=== PATIENT | female | born 1985 | race Caucasian/White ===

== ENCOUNTER 2023-02-09 13:47 | Observation (INO) | payer OTHER ==
--- NOTE | 2023-02-09 14:18 | ED Physician Documentation ---
PD HPI ABD PAIN - Stated complaint Stated Complaint: ABD PX/BLOAT - Chief complaint Chief Complaint: Abd Pain - History obtained from History obtained from: Patient - Additional information Additional information: She has developed progressive epigastric and right upper quadrant pain for the last 36 hours associated with a sensation of bloating and mild nausea. No history of abdominal surgeries. Pain is a stabbing pain. PD PAST MEDICAL HISTORY - Present Medications Home Medications: Ambulatory Orders Medication Instructions Recorded Confirmed No Known Home Medications 02/09/23 02/09/23 - Allergies Allergies/Adverse Reactions: Allergies Allergy/AdvReac Type Severity Reaction Status Date / Time oxymetazoline Allergy Hives Verified 02/09/23 14:08 PD ED PE NORMAL - Vitals Vital signs reviewed: Yes - General General: Alert and oriented X 3, No acute distress - Respiratory Respiratory: No respiratory distress, Clear bilaterally - Abdomen Abdomen: Normal bowel sounds, Other (Exquisitely tender in the right upper quadrant with positive Dumont sign) - Neuro Neuro: Alert and oriented X 3, Normal speech Results - Vitals Vitals: Vital Signs - 24 hr 02/09/23 02/09/23 14:07 15:37 Temperature 36.6 C Heart Rate 91 64 Respiratory 16 20 Rate Blood Pressure 197/94 H 181/56 H O2 Saturation 97 97 Oxygen O2 Source Room air - Labs Labs: Laboratory Tests 02/09/23 02/09/23 14:30 14:30 WBC 15.8 H RBC 5.02 Hgb 15.2 Hct 45.2 MCV 90.0 MCH 30.3 MCHC 33.6 RDW 12.3 Plt Count 348 MPV 9.2 Neut # (Auto) 12.8 H Lymph # (Auto) 1.5 [place] # (Auto) 1.3 H Eos # (Auto) 0.1 Baso # (Auto) 0.1 Absolute Nucleated RBC 0.00 Nucleated RBC % 0.0 Sodium 137 Potassium 3.5 Chloride 103 Carbon Dioxide 25 Anion Gap 9.0 BUN 12 Creatinine 0.7 Estimated GFR (MDRD) 95 Glucose 111 H Calcium 9.2 Total Bilirubin 1.0 AST 24 ALT 36 Alkaline Phosphatase 54 Total Protein 7.9 Albumin 4.4 Globulin 3.5 Albumin/Globulin Ratio 1.3 Lipase 29 PD Medical Decision Making - ED course ED course: 37-year-old woman presents with signs and symptoms consistent with acute cholecystitis which is proven on ultrasound. There is no evidence of biliary obstruction. She is started on Cipro and Flagyl. We do not formally have on- call surgery today but I was able to consult Dr. Silva who is on-call tomorrow and he will take her to the OR tomorrow. Spoke with Dr. Cuevas for admission at 3:25 PM. Departure - Departure Disposition: ED Place in Observation Clinical Impression: Cholecystitis Condition: Serious
[2023-02-09 14:44] LABS: BASOPHILS # (AUTO) 0.1 10^3/uL (0.0-0.1); BASOPHILS % (AUTO) 0.4 %; EOSINOPHILS # (AUTO) 0.1 10^3/uL (0.0-0.7); EOSINOPHILS % (AUTO) 0.6 %; HCT - HEMATOCRIT 45.2 % (37.0-47.0); HGB - HEMOGLOBIN 15.2 g/dL (12.0-16.0); LYMPHOCYTES # (AUTO) 1.5 10^3/uL (1.5-3.5); LYMPHOCYTES % (AUTO) 9.2 %; MEAN CORPUSCULAR HEMOGLOBIN 30.3 pg (27.0-31.0); MEAN CORPUSCULAR HGB CONC 33.6 g/dL (32.0-36.0); MEAN PLATELET VOLUME 9.2 fL (7.9-10.8); MONOCYTES # (AUTO) 1.3 10^3/uL (0.0-1.0); MONOCYTES % (AUTO) 8.3 %; NEUTROPHILS # (AUTO) 12.8 10^3/uL (1.5-6.6); NEUTROPHILS % (AUTO) 80.9 %; PLT - PLATELET COUNT 348 10^3/uL (130-450); RED BLOOD COUNT 5.02 10^6/uL (4.20-5.40); RED CELL DISTRIBUTION WIDTH 12.3 % (12.0-15.0); WHITE BLOOD COUNT 15.8 x10^3/uL (4.8-10.8)
[2023-02-09] MEDS ORDERED: KETOROLAC 15 MG/ML VIAL IVP STA (14:47)
[2023-02-09 14:58] LABS: ALBUMIN 4.4 g/dL (3.2-5.5); ALBUMIN/GLOBULIN RATIO 1.3 (1.0-2.2); CALCIUM 9.2 mg/dL (8.5-10.3); CREATININE 0.7 mg/dL (0.4-1.0); POTASSIUM 3.5 mmol/L (3.5-5.0); TOTAL PROTEIN 7.9 g/dL (6.7-8.2)
[2023-02-09] MEDS ORDERED: HYDROmorphone 1 MG/ML CARPUJECT IVP STA ×2 (15:02→16:29)
[2023-02-09] MEDS ORDERED: metroNIDAZOLE 500 MG/100 ML 500 MG/100 ML BAG IV ONE (15:25)
[2023-02-09] MEDS ORDERED: CIPROFLOXACIN 400 MG/200 ML 400 MG/200 ML BAG IV STA (15:25)
--- NOTE | 2023-02-09 15:35 | Ultrasound Report ---
PROCEDURE: Abdomen Limited INDICATIONS: Right upper quadrant pain TECHNIQUE: Real-time focused scanning was performed of the abdomen, with image documentation. COMPARISONS: None. FINDINGS: Liver: Liver is mildly enlarged measuring 2.1 cm. There is diffuse increased echogenicity throughout the liver. Gallbladder: There is sludge within the gallbladder. Diffuse thickening of the gallbladder wall measu ring 6.8 mm. There is positive sonographic Dumont's sign per preparole counseling aide. Gallbladder length is hydro pic measuring 17 cm. No obvious pericholecystic fluid identified. Biliary ducts: Intrahepatic bile ducts are non-dilated. Extrahepatic bile duct caliber measures 4.6 mm. Normal is 6-7 mm or less in diameter, or 10 mm or less post-cholecystectomy. Pancreas: Visualized portions of the pancreas are sonographically normal. Right kidney: Normal in size and echotexture. Right kidney measures 14.2 cm long. No hydronephrosis or nephrolithiasis. No solid masses. No complex renal cystic lesions which require follow-up. Aorta: Visualized aorta is normal in caliber at less than 3 cm. IVC: Intrahepatic inferior vena cava is patent. Miscellaneous: No free abdominal fluid. IMPRESSION: Acute cholecystitis. Reviewed by: Asif Carballo MD on 02/09/2023 2:33 PM MIKE Approved by: Asif Carballo MD on 02/09/2023 2:33 PM MIKE Station ID: [id number]
[2023-02-09] MEDS ORDERED: SODIUM CHLORIDE FLUSH 0.9% 10 ML SYRINGE IVP PRN (16:33)
[2023-02-09] MEDS ORDERED: ONDANSETRON 4 MG/2 ML VIAL IVP PRN (16:33)
[2023-02-09] MEDS ORDERED: HYDROmorphone 0.5 MG/0.5 ML SYRINGE IVP PRN ×2 (16:33→17:52)
[2023-02-09] MEDS ORDERED: PROCHLORPERAZINE 10 MG/2 ML VIAL IVP PRN (16:33)
--- NOTE | 2023-02-09 16:42 | HISTORY & PHYSICAL EXAMINATION ---
Chief Complaint - Chief Complaint Chief Complaint: abd pain, N/v History of Present Illness - Admitted From Admitted From:: ED - History Obtained From History obtained from: ED provider and the patient - History of Present Illness HPI Comment/Other: This is a 37-year-old white female he has a history of morbid obesity, BMI is 52, otherwise negative past history and she takes no medications. She developed abdominal pain yesterday after eating pizza and brownies, then nausea and vomiting. She presented to the ER today with ongoing sx. She was found to have exquisite tenderness in the right upper quadrant, and a positive Dumont's sign. An ultrasound was done that confirmed acute cholecystitis. She has gallbladder sludge. She also has fatty liver. Her white blood count is elevated at 15.8. She has no fever. She received IV Dilaudid in the ED as well as iv Ketolorac and empiric IV Flagyl and IV Cipro. The ED provider contacted a general surgeon however there is no general surgeon on-call today. That general surgeon asked that the patient be admitted to the Hospitalist service and tomorrow the patient will not undergo surgery, since there is a general surgeon available tomorrow. The ED provider spoke to me on the Hospitalist service about the patient and about this plan. History - Past Medical History Cardiovascular: reports: None Respiratory: reports: None Neuro: reports: None Endocrine/Autoimmune: reports: Other (Morbid obesity. She has been trying to lose weight by dieting) GI: reports: None WAFER FAB OPERATOR: reports: None : reports: None HEENT: reports: None Psych: reports: None Musculoskeletal: reports: None Derm: reports: None - Past Surgical History HEENT: reports: Other ([place] teeth removed) - Family & Social History Family History: Mother: (mother of heart disease, father of unknown cause), Father: Family History Comment/Other: Father at 68, mother at 72. She has no siblings. She has no children. 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 Living arrangement: At home Living Situation: With spouse/s.o. Social History Notes: Patient drinks no alcohol, and uses no illicit drugs. She was an ex-smoker who switched over to vaping which she does "every 30 minutes during the day" since she works from home. - Substance History Use: Uses substance without health or social issues: Tobacco Meds/Allgy - Home Medications Home Medications: Ambulatory Orders Medication Instructions Recorded Confirmed No Known Home Medications 02/09/23 02/09/23 - Allergies Allergies/Adverse Reactions: Allergies Allergy/AdvReac Type Severity Reaction Status Date / Time oxymetazoline Allergy Hives Verified 02/09/23 14:08 Review of Systems - Gastrointestinal Gastrointestinal: reports: Abdominal pain, Nausea, Vomiting - All Other Systems All Other Systems: reports: Reviewed and negative Exam - Vital Signs Vital Signs: Vital Signs x48h Temp Pulse Resp BP Pulse Ox 02/09/23 15:37 64 20 181/56 H 97 02/09/23 14:07 36.6 C 91 16 197/94 H 97 - Physical Exam General Appearance: positive: Alert, Mild distress Eyes Bilateral: positive: Normal inspection, EOMI ENT: positive: ENT inspection nml, No signs of dehydration Neck: positive: Other (Cannot evaluate JVP due to morbid obesity) Respiratory: positive: No respiratory distress Cardiovascular: positive: Regular rate & rhythm Abdomen: positive: Other (Morbidly obese, has a large pannus, tenderness to moderate palpation in the right upper quadrant with guarding) Extremities: positive: Non-tender, No pedal edema Neurologic/Psychiatric: positive: Motor nml, Sensation nml Conclusion/Plan - Problem List (1) Acute cholecystitis Conclusion/Plan: Patient is the right age and with morbid obesity, which are risk factors for cholecystitis Plan: We will place the patient in Observation status We will continue with IV narcotic pain meds, iv Dilaudid, alternating with iv Ketolorac Continue iv antiemetics as needed Diet can be clear liquids then n.p.o. after midnight ordered in preparation for surgery tomorrow, as per the plan of the surgeon We will continue the empiric IV Cipro and IV Flagyl perioperatively (2) Morbid obesity with BMI of 50.0-59.9, adult Conclusion/Plan: This complicates her care, it also gives her increased risk for cholecystitis Plan: Anesthesia will need to evaluate her risk preoperatively - Lab Results Fish Bones: 02/09/23 14:30 02/09/23 14:30 - Diagnostic Imaging Results Diagnostic Imaging Results: positive: Final report reviewed
[2023-02-09 16:58] LABS: BILIRUBIN,URINE NEGATIVE (NEGATIVE); GLUCOSE, URINE (UA) NEGATIVE (NEGATIVE); KETONES,URINE (UA) 40 mg/dL (NEGATIVE); LEUKOCYTE ESTERASE, URINE NEGATIVE (NEGATIVE); NITRITE,URINE NEGATIVE (NEGATIVE); OCCULT BLOOD,URINE NEGATIVE (NEGATIVE); PROTEIN,URINE NEGATIVE (NEGATIVE); UROBILINOGEN,URINE 1 (NORMAL) E.U./dL (NORMAL)
[2023-02-09 17:00] LABS: CLARITY,URINE CLEAR (CLEAR); HCG UR QUAL NEGATIVE
[2023-02-09] MEDS: LACTATED RINGERS 1,000 ML IV SCH (17:16)
[2023-02-09] MEDS: SODIUM CHLORIDE FLUSH 0.9% 10 ML SYRINGE IVP SCH ×2 (17:16→23:43)
[2023-02-09] MEDS ORDERED: HYDROmorphone 0.5 MG/0.5 ML SYRINGE IVP STA (17:59)
[2023-02-09] MEDS: KETOROLAC 15 MG/ML VIAL IVP PRN (18:21)
[2023-02-09] MEDS ORDERED: MORPHINE 2 MG/ML CARPUJECT IVP PRN (20:18)
[2023-02-09] MEDS: MORPHINE 2 MG/ML CARPUJECT IVP PRN ×2 (21:24→23:22)
[2023-02-09] MEDS: HYDROmorphone 1 MG/ML CARPUJECT IVP PRN (22:08)
[2023-02-09] MEDS: metroNIDAZOLE 500 MG/100 ML 500 MG/100 ML BAG IV SCH (23:41)
[2023-02-10] MEDS: HYDROmorphone 1 MG/ML CARPUJECT IVP PRN ×2 (00:11→06:16)
[2023-02-10] MEDS: KETOROLAC 15 MG/ML VIAL IVP PRN ×2 (00:12→06:16)
[2023-02-10] MEDS: CIPROFLOXACIN 400 MG/200 ML 400 MG/200 ML BAG IV SCH ×2 (04:48→15:26)
[2023-02-10 05:23] LABS: BASOPHILS % (AUTO) 0.3 %; EOSINOPHILS % (AUTO) 0.2 %; HCT - HEMATOCRIT 42.8 % (37.0-47.0); HGB - HEMOGLOBIN 14.4 g/dL (12.0-16.0); LYMPHOCYTES % (AUTO) 5.1 %; MEAN CORPUSCULAR HEMOGLOBIN 30.3 pg (27.0-31.0); MEAN CORPUSCULAR HGB CONC 33.6 g/dL (32.0-36.0); MEAN CORPUSCULAR VOLUME 90.1 fL (81.0-99.0); MEAN PLATELET VOLUME 9.4 fL (7.9-10.8); MONOCYTES % (AUTO) 10.8 %; NEUTROPHILS % (AUTO) 83.1 %; PLT - PLATELET COUNT 326 10^3/uL (130-450); RED BLOOD COUNT 4.75 10^6/uL (4.20-5.40); RED CELL DISTRIBUTION WIDTH 12.4 % (12.0-15.0); WHITE BLOOD COUNT 16.2 x10^3/uL (4.8-10.8)
[2023-02-10 05:29] LABS: ABNORMAL LYMPHS % (MANUAL) 0 %; BAND NEUTROPHILS % (MANUAL) 0 %
[2023-02-10 05:34] LABS: CALCIUM 8.7 mg/dL (8.5-10.3); CREATININE 0.7 mg/dL (0.4-1.0); POTASSIUM 3.6 mmol/L (3.5-5.0)
[2023-02-10] MEDS: MORPHINE 2 MG/ML CARPUJECT IVP PRN ×2 (05:38→08:23)
[2023-02-10 05:42] LABS: LYMPHOCYTES # (MANUAL) 0.5 10^3/uL (1.5-3.5); LYMPHOCYTES % (MANUAL) 3 %; MONOCYTES # (MANUAL) 2.3 10^3/uL (0.0-1.0); NEUTROPHILS # (MANUAL) 13.4 10^3/uL (1.5-6.6); PLATELET MORPHOLOGY NORMAL APP (NORMAL); RBC MORPHOLOGY (MULTIPLE) NORMAL APPEARANCE (NORMAL)
[2023-02-10 05:43] LABS: DIFFERENTIAL COMMENT MANUAL DIFFERENTIAL; PLATELET ESTIMATE, MANUAL NORMAL (130-450,000) (NORMAL); WBC MORPHOLOGY (MULTIPLE) NORMAL APPEARANCE (NORMAL)
[2023-02-10] MEDS: LACTATED RINGERS 1,000 ML IV SCH (06:20)
--- NOTE | 2023-02-10 08:28 | HISTORY & PHYSICAL EXAMINATION ---
Chief Complaint - Chief Complaint Chief Complaint: right upper quadrant pain History of Present Illness - History Obtained From Records Reviewed: yes History obtained from: pt Exam Limitations: none - History of Present Illness HPI Comment/Other: right upper quadrant pain few days. not improving. no similar prior symptoms History - Past Medical History Cardiovascular: reports: None Respiratory: reports: None Neuro: reports: None Endocrine/Autoimmune: reports: Other (Morbid obesity. She has been trying to lose weight by dieting) GI: reports: None MASTIC MAN: reports: None : reports: None HEENT: reports: None Psych: reports: None Musculoskeletal: reports: None Derm: reports: None - Past Surgical History HEENT: reports: Other ([place] teeth removed) - Family & Social History Family History: Mother: (mother of heart disease, father of unknown cause), Father: Family History Comment/Other: Father at 68, mother at 72. She has no siblings. She has no children. 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 Living arrangement: At home Living Situation: With spouse/s.o. Social History Notes: Patient drinks no alcohol, and uses no illicit drugs. She was an ex-smoker who switched over to vaping which she does "every 30 minutes during the day" since she works from home. - Substance History Use: Uses substance without health or social issues: Tobacco Meds/Allgy - Home Medications Home Medications: Ambulatory Orders Medication Instructions Recorded Confirmed No Known Home Medications 02/09/23 02/09/23 - Allergies Allergies/Adverse Reactions: Allergies Allergy/AdvReac Type Severity Reaction Status Date / Time oxymetazoline Allergy Hives Verified 02/09/23 14:08 Review of Systems - Other Findings Other Findings: 10 pt ros as above otherwise unremarkable Exam - Vital Signs Reviewed Vital Signs: Yes Vital Signs: Vital Signs x48h Temp Pulse Resp BP Pulse Ox 02/10/23 07:54 36.7 C 99 16 144/83 H 95 02/10/23 04:37 37.2 C 89 16 137/81 H 94 - Physical Exam General Appearance: positive: No acute distress, Alert Eyes Bilateral: positive: PERRL, EOMI, No scleral icterus ENT: positive: No signs of dehydration Neck: positive: No JVD, Trachea midline Respiratory: positive: No respiratory distress Cardiovascular: positive: Regular rate & rhythm Abdomen: positive: No distention, Other (she describes tenderness ruq) Neurologic/Psychiatric: positive: Oriented x3 Conclusion/Plan - Problem List (1) Acute cholecystitis Conclusion/Plan: plan lap monica. parq held and consent obtained - Lab Results Fish Bones: 02/10/23 04:47 02/10/23 04:47 - Diagnostic Imaging Results Diagnostic Imaging Results: positive: Read independently
[2023-02-10] MEDS: metroNIDAZOLE 500 MG/100 ML 500 MG/100 ML BAG IV SCH ×2 (08:30→16:39)
[2023-02-10] MEDS ORDERED: BUPIVACAINE 0.25% PF 30 ML VIAL ONE (08:36)
[2023-02-10] MEDS ORDERED: ROCURONIUM 50 MG/5 ML VIAL ONE ×2 (09:00→10:19)
[2023-02-10] MEDS ORDERED: PROPOFOL 200 MG/20 ML VIAL IVP ONE (09:00)
[2023-02-10] MEDS ORDERED: fentaNYL 100 MCG/2 ML VIAL ONE (09:00)
[2023-02-10] MEDS: SODIUM CHLORIDE FLUSH 0.9% 10 ML SYRINGE IVP SCH ×2 (09:00→17:49)
[2023-02-10] MEDS ORDERED: MIDAZOLAM 2 MG/2 ML VIAL ONE (09:00)
[2023-02-10] MEDS ORDERED: ATROPINE ABBOJECT 1 MG/10 ML SYRINGE IVP PRN (09:07)
[2023-02-10] MEDS ORDERED: HYDROmorphone 0.5 MG/0.5 ML SYRINGE IVP PRN (09:07)
[2023-02-10] MEDS ORDERED: MORPHINE 2 MG/ML CARPUJECT IVP PRN (09:07)
[2023-02-10] MEDS ORDERED: ONDANSETRON 4 MG/2 ML VIAL IVP PRN ×2 (09:07→11:51)
[2023-02-10] MEDS ORDERED: fentaNYL 100 MCG/2 ML VIAL IVP PRN (09:07)
[2023-02-10] MEDS ORDERED: NALOXONE 0.4 MG/ML VIAL IVP PRN (09:07)
--- NOTE | 2023-02-10 09:07 | ANESTHESIA ---
Pre-Anesthesia VS, & Labs - Diagnosis acute cholecystitis - Procedure lap monica Vital Signs: Temp Pulse Resp BP Pulse Ox O2 Flow Rate 36.7 C 99 16 144/83 H 95 02/10/23 07:54 02/10/23 07:54 02/10/23 07:54 02/10/23 07:54 02/10/23 07:54 Height: 5 ft 9 in Weight (kg): 161.5 kg Body Mass Index: 52.5 BMI Classification: Morbidly Obese - NPO >8 hours - Is Patient ?: No - Lab Results Current Lab Results: Laboratory Tests 02/10/23 04:47: Sodium 137, Potassium 3.6, Chloride 104, Carbon Dioxide 24, Anion Gap 9.0, BUN 10, Creatinine 0.7, Estimated GFR (MDRD) 95, Glucose 156 H, Calcium 8.7 02/10/23 04:47: WBC 16.2 H, RBC 4.75, Hgb 14.4, Hct 42.8, MCV 90.1, MCH 30.3, MCHC 33.6, RDW 12.4, Plt Count 326, MPV 9.4, Neut # (Auto) Not Reportable, Lymph # (Auto) Not Reportable, [place] # (Auto) Not Reportable, Eos # (Auto) Not Report able, Baso # (Auto) Not Reportable, Absolute Nucleated RBC Not Reportable, Total Counted 100, Band Neuts % (Manual) 0, Abnorm Lymph % (Manual) 0, Nucleated RBC % Not Reportable, Neutrophils # (Manual) 13.4 H, Lymphocytes # (Manual) 0.5 L, Monocytes # (Manual) 2.3 H, Eosinophils # (Manual) 0.0, Basophils # (Manual) 0.0, Differential Comment MANUAL DIFFERENTIAL, WBC Morphology NORMAL APPEARANCE, Platelet Estimate NORMAL (130-450,000), Platelet Morphology NORMAL FIDENCIO, RBC Morph Micro Appear NORMAL APPEARANCE 02/09/23 14:30: Sodium 137, Potassium 3.5, Chloride 103, Carbon Dioxide 25, Anion Gap 9.0, BUN 12, Creatinine 0.7, Estimated GFR (MDRD) 95, Glucose 111 H, Calcium 9.2, Total Bilirubin 1.0, AST 24, ALT 36, Alkaline Phosphatase 54, Total Protein 7.9, Albumin 4.4, Globulin 3.5, Albumin/Globulin Ratio 1.3, Lipase 29 02/09/23 14:30: WBC 15.8 H, RBC 5.02, Hgb 15.2, Hct 45.2, MCV 90.0, MCH 30.3, MCHC 33.6, RDW 12.3, Plt Count 348, MPV 9.2, Neut # (Auto) 12.8 H, Lymph # (Auto) 1.5, [place] # (Auto) 1.3 H, Eos # (Auto) 0.1, Baso # (Auto) 0.1, Absolute Nucleated RBC 0.00, Nucleated RBC % 0.0 Lab results reviewed: Yes Fish Bones: 02/10/23 04:47 02/10/23 04:47 Home Medications and Allergies Home Medications: Ambulatory Orders No Known Home Medications 02/09/23 Active Medications Hydromorphone HCl (Hydromorphone 1 Mg/Ml Carpuject) 1 mg IVP Q2H PRN PRN Reason: Severe Pain (Level 8-10) Last Admin: 02/10/23 06:16 Dose: 1 mg Lactated Ringer's (Lr) 1,000 mls @ 100 mls/hr IV .Q10H [facility] Last Admin: 02/10/23 06:20 Dose: 100 mls/hr Metronidazole (Flagyl 500 Mg/100 Ml) 500 mg in 100 mls @ 100 mls/hr IV Q8H [facility] Last Admin: 02/10/23 08:30 Dose: 100 mls/hr Ciprofloxacin (Cipro 400 Mg/200 Ml) 400 mg in 200 mls @ 200 mls/hr IV Q12H [facility] Last Admin: 02/10/23 04:48 Dose: Not Given Ketorolac Tromethamine (Ketorolac 15 Mg/Ml Vial) 15 mg IVP Q6HR PRN PRN Reason: Severe Pain (Level 7-10) Stop: 02/14/23 17:52 Last Admin: 02/10/23 06:16 Dose: 15 mg Morphine Sulfate (Morphine 2 Mg/Ml Carpuject) 4 mg IVP Q2HR PRN PRN Reason: Severe Pain (Level 7-10) Last Admin: 02/10/23 08:23 Dose: 4 mg Ondansetron HCl (Ondansetron 4 Mg/2 Ml Vial) 4 mg IVP Q6HR PRN PRN Reason: Nausea / Vomiting Last Admin: 02/09/23 17:16 Dose: 4 mg Prochlorperazine Edisylate (Prochlorperazine 10 Mg/2 Ml Vial) 10 mg IVP Q6HR PRN PRN Reason: Nausea / Vomiting Last Admin: 02/09/23 20:59 Dose: 10 mg Sodium Chloride (Sodium Chloride Flush 0.9% 10 Ml Syringe) 10 ml IVP PRN PRN PRN Reason: NEEDED PER PROVIDER ORDERS Sodium Chloride (Sodium Chloride Flush 0.9% 10 Ml Syringe) 10 ml IVP 0100,0900,1700 [facility] Last Admin: 02/09/23 23:43 Dose: 10 ml No Known Home Medications 02/09/23 Allergies/Adverse Reactions: Allergies Allergy/AdvReac Type Severity Reaction Status Date / Time oxymetazoline Allergy Hives Verified 02/09/23 14:08 Anes History & Medical History - Anesthetic History Family history of Anesthesia Complications: Denies Family history of Malignant Hyperthermia: Denies - Medical History Cardiovascular: reports: None Pulmonary: reports: None, Other (snores) Gastrointestinal: reports: None Urinary: reports: None Neuro: reports: None Musculoskeletal: reports: None Endocrine/Autoimmune: reports: Other (Morbid obesity. She has been trying to lose weight by dieting) Skin: reports: None Smoking Status: Current every day smoker (vapes daily) Psychosocial: reports: No issues indicated History of Cancer?: No - Surgical History Eyes Ears Nose Throat (EENT): reports: Other ([place] teeth removed) Exam General: Alert, Oriented x3, Cooperative, No acute distress Dental: WNL Mouth Openin Fingerbreadth Neck Mobility: Normal Mallampati classification: II Thyromental Distance: 4-6 cm Mental/Cognitive Status: Alert/Oriented X3, Normal for patient Plan Anesthesia Type: General Regional Block: Per Surgeon's request for Post Op pain control Consent for Procedure(s) Verified and Reviewed: Yes Code Status: Attempt Resuscitation ASA classification: 3-Severe systemic disease Is this case an emergency?: Yes
[2023-02-10] MEDS ORDERED: DEXAMETHASONE 4 MG/ML VIAL ONE (09:46)
[2023-02-10] MEDS ORDERED: ONDANSETRON 4 MG/2 ML VIAL ONE (09:46)
[2023-02-10] MEDS ORDERED: BUPIVACAINE 0.25% PF 30 ML VIAL SUBQ ONE (09:59)
[2023-02-10] MEDS ORDERED: LACTATED RINGERS 1,000 ML IV SCH (10:00)
[2023-02-10] MEDS ORDERED: HYDROmorphone 1 MG/ML CARPUJECT ONE (10:21)
[2023-02-10] MEDS ORDERED: LABETALOL 5 MG/1 ML 20 ML MDV ONE (10:45)
[2023-02-10] MEDS ORDERED: SUGAMMADEX 200 MG/2 ML VIAL IVP ONE (10:47)
[2023-02-10] MEDS ORDERED: HYDROcod/ACETAM 5/325 MG TABLET PO PRN (11:51)
[2023-02-10] MEDS ORDERED: LACTATED RINGERS 1,000 ML IV ONE (11:53)
--- NOTE | 2023-02-10 12:24 | ANESTHESIA POST OP EVALUATION ---
Anesthesia Post Eval - Post Anesthesia Eval Vitals: Last Vital Signs Temp 36.4 C L 02/10/23 12:20 Pulse 82 02/10/23 12:20 Resp 19 02/10/23 12:20 BP 122/78 02/10/23 12:20 Pulse Ox 96 02/10/23 12:20 O2 Flow Rate CV Function Including HR & BP: Stable Pain Control: Satisfactory Nausea & Vomiting: Negative Mental Status: Baseline Respiratory Status: Airway Patent Hydration Status: Satisfactory Anesthesia Complications: None
--- NOTE | 2023-02-10 12:50 | PHARMACY PROGRESS NOTE ---
- Best Possible Medication History Admit Date and Time: 02/09/23 3009 Processed by: Pharmacy Medication History completed: Yes Patient Interview: Completed As the person ultimately responsible for medication therapy, providers are able to order a medication from an existing home medication list in [facility] via the "Reconcile Routine" prior to Confirmation of that medication by vp software support. Such practice is discouraged except when the physician, in their clinical sandy gment, deems that a medical need exists for a medication without regard to previous use.
--- NOTE | 2023-02-10 13:20 | OPERATIVE REPORT ---
Operative Report - General Admit Date: 02/09/23 Procedure Date: 02/10/23 Planned Procedure: lap monica Pre-Op Diagnosis: acute cholecystitis Procedure Performed: lap monica extra difficult Post Op Diagnosis: acute cholecystitis - Procedure Note Primary Surgeon: guzman forrester Anesthesia Technique: General ET tube, Local Pathology: gallbladder Estimated Blood Loss (mL): 10 Drain/Tube Type: Other (none) Indications: acute cholecystitis Findings: 3 to 4 x larger than normal. patch of necrosis. significant surrounding edema partially intrahepatic Complications: none - Other Other Information/Narrative: The patient was properly identified brought to the operating room and placed in supine position. She voided prior to surgery. Sequential compression devices were placed she was prepped and draped in a sterile fashion. She previously received antibiotics. Her BMI is 52. An incision was made approximately 6 cm cephalad of the umbilicus and 4 to 5 cm right lateral of the umbilicus. Dissection proceeded down to fascia. Fascia was lifted upwards and abdomen entered with a Veress needle. An 11 mm trocar with 30 degree scope was placed under vision. There was no evidence of injury from Veress needle or trocar placement. Her gallbladder was 3-4 times normal in size and was palpable at the start of the procedure. An 11 mm trocar was placed in the epigastrium and a 5 mm trocar was placed in the medial right upper quadrant. The omentum was peeled off from the gallbladder. The gallbladder was then aspirated as it was quite tense and very large. This allowed placement of an additional 5 mm trocar in the lateral right upper quadrant. Lateral attachments were partially taken down from the upper gallbladder to allow retraction more anterior. The gallbladder was partially intrahepatic with the liver tissue crossing over the fundus of the gallbladder. Thin liver parenchyma was divided allowing better exposure of the gallbladder. Eventually the gallbladder was mobilized enough anterior that the infundibulum was identified. The infundibulum was then retracted right lateral and caudad. She had significant edema of the triangle of NITZA area. Largely with blunt dissection the infundibulum of the gallbladder was further mobilized away from the liver. She had an anterior and posterior cystic artery branch. These were clipped right at the gallbladder and x2 slightly proximal and sharply divided. Gallbladder was further mobilized away from the liver creating an larger bare cystic plate area or window. The cystic duct was then clipped at the gallbladder and x2 slightly proximal and sharply divided. Gallbladder was mobilized off from the bed of the liver without spillage of stone material. Abdomen was thoroughly irrigated. The gallbladder was placed in an Endo Catch bag. Hemostasis was assured. Clips appeared secure. Fascia at the periumbilical site was closed with a [id number] 0 Vicryl. Trocars were removed under direct vision and CO2 evacuated. The epigastric trocar site was enlarged to allow extraction of the gallbladder. Fascia at this site was closed with a running 0 Vicryl suture. Skin was closed with buried interrupted 4-0 Monocryl. Dressings were applied. She tolerated the procedure well. Surgery was extra difficult given partially intrahepatic very large gallbladder partial necrosis of the gallbladder and BMI of 52
[2023-02-10 17:36] VITALS: BP 109/79
--- NOTE | 2023-02-11 15:57 | PROVIDER PROGRESS NOTE ---
Subjective - Prog Note Date Prog Note Date: 02/10/23 Prog Note Time: 12:30 - Subjective Pt reports feeling: Improved (feeling much improved) Objective - Vital Signs/Intake & Output Reviewed Vital Signs: Yes Intake & Output: Intake & Output 02/08/23 02/09/23 02/10/23 02/11/23 23:59 23:59 23:59 23:59 Intake Total 850 2468.333 Output Total 150 550 Balance 700 1918.333 - Objective General Appearance: positive: No acute distress, Alert Eyes Bilateral: positive: PERRL, EOMI, No scleral icterus Respiratory: positive: No respiratory distress Abdomen: positive: No distention - Lab Results Fish Bones: 02/10/23 04:47 02/10/23 04:47 Assessment/Plan - Problem List (1) Acute cholecystitis Impression: much improved following surgery. d/c home in good condition
== END 2023-02-10 18:24 | disposition home or self-care (01) ==
LOC: ED 13:47 → MS2 16:33
PROVIDERS: ADMIT Internal Medicine; ATTEND Surgery
PROC: 0FT44ZZ Resection of Gallbladder, Percutaneous Endoscopic Approach (ICD-10-PCS; principal; 2023-02-09)
DX: K80.00 Calculus of gallbladder with acute cholecystitis without obstruction (principal); K82.A1 Gangrene of gallbladder in cholecystitis; E66.01 Morbid (severe) obesity due to excess calories; Z68.43 Body mass index [BMI] 50.0-59.9, adult; F17.290 Nicotine dependence, other tobacco product, uncomplicated
CPT/HCPCS: 36415; 47562; 76705; 80048; 80053; 81003; 81025; 83690; 85025; 96365; 96366; 96367; 96368; 96375; 96376; 99285; A9270; G0378; J1170; J7120; 81001; 87086

== ENCOUNTER 2023-03-18 14:17 | Outpatient (CLI) | payer OTHER ==
[2023-03-18 19:08] LABS: BILIRUBIN,URINE NEGATIVE (NEGATIVE); GLUCOSE, URINE (UA) NEGATIVE (NEGATIVE); KETONES,URINE (UA) NEGATIVE (NEGATIVE); LEUKOCYTE ESTERASE, URINE NEGATIVE (NEGATIVE); NITRITE,URINE NEGATIVE (NEGATIVE); OCCULT BLOOD,URINE NEGATIVE (NEGATIVE); PROTEIN,URINE NEGATIVE (NEGATIVE); UROBILINOGEN,URINE 0.2 (NORMAL) E.U./dL (NORMAL)
[2023-03-18 19:09] LABS: CLARITY,URINE CLEAR (CLEAR)
[2023-03-18 19:11] LABS: BASOPHILS # (AUTO) 0.1 10^3/uL (0.0-0.1); BASOPHILS % (AUTO) 0.5 %; EOSINOPHILS # (AUTO) 0.2 10^3/uL (0.0-0.7); EOSINOPHILS % (AUTO) 1.1 %; HCT - HEMATOCRIT 44.8 % (37.0-47.0); HGB - HEMOGLOBIN 14.7 g/dL (12.0-16.0); LYMPHOCYTES # (AUTO) 2.5 10^3/uL (1.5-3.5); LYMPHOCYTES % (AUTO) 18.1 %; MEAN CORPUSCULAR HEMOGLOBIN 30.3 pg (27.0-31.0); MEAN CORPUSCULAR HGB CONC 32.8 g/dL (32.0-36.0); MEAN CORPUSCULAR VOLUME 92.4 fL (81.0-99.0); MEAN PLATELET VOLUME 9.6 fL (7.9-10.8); MONOCYTES # (AUTO) 0.9 10^3/uL (0.0-1.0); MONOCYTES % (AUTO) 6.6 %; NEUTROPHILS # (AUTO) 9.9 10^3/uL (1.5-6.6); PLT - PLATELET COUNT 400 10^3/uL (130-450); RED BLOOD COUNT 4.85 10^6/uL (4.20-5.40); RED CELL DISTRIBUTION WIDTH 12.4 % (12.0-15.0); WHITE BLOOD COUNT 13.6 x10^3/uL (4.8-10.8)
[2023-03-18 19:20] LABS: BACTERIA,URINE None Seen /HPF (None Seen); RBC,URINE None Seen /HPF (0-5); SQUAMOUS EPITHELIAL CELL,UR FEW Squamous (<= Few); WBC,URINE 0-3 /HPF (0-5)
[2023-03-18 19:34] LABS: ALBUMIN 4.2 g/dL (3.2-5.5); ALBUMIN/GLOBULIN RATIO 1.2 (1.0-2.2); BILIRUBIN,TOTAL 0.7 mg/dL (0.2-1.0); CALCIUM 9.2 mg/dL (8.5-10.3); CREATININE 0.8 mg/dL (0.4-1.0); POTASSIUM 4.3 mmol/L (3.5-5.0); TOTAL PROTEIN 7.8 g/dL (6.7-8.2)
== END 2023-03-18 14:18 | disposition home or self-care (01) ==
LOC: LAB.S 14:17
PROVIDERS: ATTEND Physician Assistant Medical
DX: R10.11 Right upper quadrant pain (principal)
CPT/HCPCS: 36415; 80053; 81001; 85025; 87086